=== PATIENT | male | born 1975 | race Caucasian/White ===

== ENCOUNTER 2021-08-22 15:00 | Emergency (ER) | payer OTHER, SELFPAY ==
[2021-08-22 15:15] VITALS: BP 147/95; PULSE 73; RESP 16; TEMP 37; O2SAT 100
--- NOTE | 2021-08-22 15:31 | ED.GENADULT ---
HPI - General Adult General Chief complaint: Unspecified <Millie Maria PA-C - Last Filed: 08/22/21 18:06> Stated complaint: needlestick <Millie Maria PA-C - Last Filed: 08/22/21 18:06> Time Seen by Provider: 08/22/21 15:11 <Millie Maria PA-C - Last Filed: 08/22/21 18:06> Source: patient <Millie Mraia PA-C - Last Filed: 08/22/21 18:06> Mode of arrival: ambulatory <Millie Maria PA-C - Last Filed: 08/22/21 18:06> Limitations: no limitations <Millie Maria PA-C - Last Filed: 08/22/21 18:06> History of Present Illness HPI narrative: This is a 45 year old male that presents to the ER for a needlestick injury at work. Reports he was taking out the trash and was stuck with a needle. Reports a superficial break in the skin to the right 5th finger. He immediately washed the area with soap and water. He is not up to date on tetanus. <Millie Maria PA-C - Last Filed: 08/22/21 18:06> Related Data Allergies/adverse reactions: Allergies Allergy/AdvReac Type Severity Reaction Status Date / Time No Known Allergies Allergy Unknown Verified 08/22/21 15:31 <Millie Maria PA-C - Last Filed: 08/22/21 18:06> Review of Systems Review of Systems: CONSTITUTIONAL: Denies fever SKIN: Reports superficial puncture wound <Millie Maria PA-C - Last Filed: 08/22/21 18:06> All systems reviewed & are unremarkable except as noted in HPI and below <Millie Maria PA-C - Last Filed: 08/22/21 18:06> [facility] Past Medical History Medical History: Medical History (Updated 08/22/21 @ 18:05 by Millie Maria PA-C) No active medical problems <Millie Maria PA-C - Last Filed: 08/22/21 18:06> Social History Social History: Social History Smoking status: Never smoker Alcohol intake: current <Millie Maria PA-C - Last Filed: 08/22/21 18:06> Exam Narrative: GENERAL: Well-appearing, well-nourished, and in no acute distress. HEAD: Normocephalic, atraumatic. EYES: EOMI. EXTREMITIES: Normal range of motion. No edema. Superficial puncture wound noted to the right fifth finger, no active bleeding SKIN: Warm, dry, no rash. NEURO: No focal deficits. Alert and oriented x3. PSYCH: Normal mood and affect <Millie Maria PA-C - Last Filed: 08/22/21 18:06> Course [facility] [employer]/PA Physician Supervision I did not see this patient nor was the care plan discussed with me. I was available for evaluation and consultation, I agree with the documentation as above <Constantin Jordan MD - Last Filed: 08/22/21 18:25> Vital Signs Vital signs: Vital Signs Temperature 37.0 C 08/22/21 15:15 Pulse Rate 73 08/22/21 15:15 Respiratory Rate 16 08/22/21 15:15 Blood Pressure 147/95 H 08/22/21 15:15 Pulse Oximetry 100 08/22/21 15:15 Temperature 37.0 C 08/22/21 15:15 Pulse Rate 73 08/22/21 15:15 Respiratory Rate 16 08/22/21 15:15 Blood Pressure 147/95 H 08/22/21 15:15 Pulse Oximetry 100 08/22/21 15:15 <Millie Maria PA-C - Last Filed: 08/22/21 18:06> Vital Signs Temperature 37.0 C 08/22/21 15:15 Pulse Rate 73 08/22/21 15:15 Respiratory Rate 16 08/22/21 15:15 Blood Pressure 147/95 H 08/22/21 15:15 Pulse Oximetry 100 08/22/21 15:15 Temperature 37.0 C 08/22/21 15:15 Pulse Rate 73 08/22/21 15:15 Respiratory Rate 16 08/22/21 15:15 Blood Pressure 147/95 H 08/22/21 15:15 Pulse Oximetry 100 08/22/21 15:15 <Constantin Jordan MD - Last Filed: 08/22/21 18:25> Medical Decision Making MDM Narrative Medical decision making narrative: Patient presents to the emergency department for needlestick injury at work. Very superficial injury to the right fifth finger. Patient immediately washed with soap and water. Needlestick profile was sent. HIV is negative. Hepatitis panel is pending. Reportedly there is trouble with analyzer and the hepatitis panel will take a couple more hours. Patient would not l
[2021-08-22] MEDS: TETANUS,DIPHTHERIA,AC PERTUSSIS ADULT (0.5 ML) BOOSTRIX IM (15:56)
--- NOTE | 2021-08-22 16:00 | PC.NURSE ---
Small puncture wound, needlestick, noted to right pinky finger.
[2021-08-22 16:21] LABS: HIV 1/2 Ab P24 Ag Result Negative (Negative)
[2021-08-22 18:30] LABS: Hepatitis B Surface Anti Res Indeterminate; Hepatitis C Virus Antibody Negative (Negative)
== END 2021-08-22 18:26 | disposition home or self-care (01) ==
PROVIDERS: Emergency Medicine; Emergency Provider Emergency Medicine
DX: S60.946A Unspecified superficial injury of right little finger, initial encounter (principal); Z23 Encounter for immunization; W46.1XXA Contact with contaminated hypodermic needle, initial encounter
CPT/HCPCS: 36415; 86703; 86706; 86803; 90471; 90715; 99283; G0432